=== PATIENT | female | born 1980 | race Caucasian/White ===

== ENCOUNTER 2019-01-20 07:36 | Emergency (ER) | payer OTHER ==
[~2019-01-20] VITALS: Ht 162.6 cm; Wt 65.8 kg
[~2019-01-20 07:36] MED LIST: BCP; METFORMIN HCL500 MG PO; ONDANSETRON HCL4 M2 PO; PROTONIX40 M2 PO; TRINATE TABLET1 TAB PO
[2019-01-20] MEDS ORDERED: MAGNESIUM250 M1 PO (07:47)
[2019-01-20] MEDS ORDERED: WELLBUTRIN XL300 MG PO (07:47)
[2019-01-20 10:18] VITALS: BP 129/75
== END 2019-01-20 10:19 | disposition home or self-care (01) ==
LOC: M.ERS 07:36
DX: G43.909 Migraine, unspecified, not intractable, without status migrainosus (principal); R42 Dizziness and giddiness; E11.9 Type 2 diabetes mellitus without complications; Z98.890 Other specified postprocedural states